=== PATIENT | male | born 2000 | race African-American/Black ===

== ENCOUNTER 2020-11-21 19:28 | Emergency (ER) | payer MEDICAID ==
[~2020-11-21] VITALS: Ht 175.3 cm; Wt 74.0 kg
[2020-11-21 20:28] VITALS: BP 120/80
== END 2020-11-21 20:34 | disposition home or self-care (01) ==
LOC: ER 19:35
DX: K02.9 Dental caries, unspecified (principal)
CPT/HCPCS: 99281

== ENCOUNTER 2022-10-31 04:13 | Emergency (ER) | payer MEDICAID ==
[~2022-10-31] VITALS: Ht 165.1 cm; Wt 91.0 kg
[2022-10-31 04:20] VITALS: BP 122/80; PULSE 80; RESP 16; TEMP 98.2; O2SAT 100
[2022-10-31] MEDS ORDERED: IBUPROFEN 800MG TABLET PO ONE (06:15)
[2022-10-31] MEDS ORDERED: METOCLOPRAMIDE HCL 10MG TABLET PO ONE (06:15)
[2022-10-31] MEDS ORDERED: IBUPROFEN 400MG TABLET PO NR (07:00)
== END 2022-10-31 09:15 | disposition left against medical advice (07) ==
LOC: ER 04:13
DX: R51.9 Headache, unspecified (principal); K04.7 Periapical abscess without sinus
CPT/HCPCS: 99283

== ENCOUNTER 2023-04-13 23:37 | Emergency (ER) | payer MEDICAID ==
[~2023-04-13] VITALS: Ht 177.8 cm; Wt 86.2 kg
[2023-04-13 23:44] VITALS: O2SAT 99
[2023-04-14 00:02] VITALS: BP 129/82; PULSE 92; RESP 15; TEMP 98
== END 2023-04-14 00:17 | disposition home or self-care (01) ==
LOC: ER 23:37
DX: F12.90 Cannabis use, unspecified, uncomplicated (principal); R20.2 Paresthesia of skin; Z20.822 Contact with and (suspected) exposure to COVID-19
CPT/HCPCS: 87426; 87804; 99283

== ENCOUNTER 2023-10-04 16:36 | Emergency (ER) | payer MEDICAID ==
[~2023-10-04] VITALS: Ht 172.7 cm; Wt 75.0 kg
[2023-10-04 16:39] VITALS: BP 138/96; PULSE 80; RESP 16; TEMP 98.5; O2SAT 98
== END 2023-10-04 21:12 | disposition left against medical advice (07) ==
LOC: ER 16:36
DX: F15.10 Other stimulant abuse, uncomplicated (principal); F12.10 Cannabis abuse, uncomplicated
CPT/HCPCS: 82962; 99283; Z7610